=== PATIENT | male | born 1945 | race Caucasian/White ===

== ENCOUNTER 2022-02-08 11:58 | Emergency (ER) | payer OTHER, MEDICARE, SELFPAY ==
--- NOTE | ~2022-02-08 | XR_ITS ---
EXAMINATION: XR chest 2V DATE: 02/08/2022 12:41 INDICATION: Hypoxia and shortness of breath TECHNIQUE: AP and lateral views of the chest are obtained. COMPARISON: None available FINDINGS: There are opacities of the left lung base. Trace pleural effusions are present. There is no pneumothorax. The heart size is normal. There appears to be marked ectasia of the thoracic aorta. Th ere is moderate thoracic spondylosis. IMPRESSION: 1. Left basilar airspace opacities, consistent with atelectasis versus pneumonia. Reviewed, dictated and finalized at location A. IMPRESSION: 1. Left basilar airspace opacities, consistent with atelectasis versus pneumoni a.
--- NOTE | 2022-02-08 12:08 | ECG_ITS ---
Measurements Intervals [place] Rate: 64 P: 29 WY: 196 QRS: -41 QRSD: 86 T: 31 QT: 415 QTc: 431 Interpretive Statements SINUS RHYTHM LEFT AXIS DEVIATION [QRS AXIS < -30] LOW QRS VOLTAGE IN EXTREMITY LEADS BORDERLINE ECG NO PREVIOUS ECG AVAILABLE FOR COMPARISON Electronically Signed On 02-08-2022 14:51:48 CDT by Jose R Cifuentes M.D.
[2022-02-08 12:09] VITALS: BP 115/79; PULSE 65; RESP 20; TEMP 37.4; O2SAT 94
[2022-02-08 12:25] LABS: Basophils Percent Auto 0.4 % (0.2-1.2); Eosinophils Percent Auto 0.2 % (0-4.4); Hematocrit 43.9 % (42.0-52.0); Hemoglobin 14.4 g/dL (14.0-18.0); Immature Granulocyte Absolute 0.01 K/mm3 (0.00-0.031); Immature Granulocyte Percent A 0.1 % (0-0.5); Lymphocytes Absolute Auto 1.06 K/mm3 (0.9-3.2); Lymphocytes Percent Auto 13.2 % (18.3-44.2); Mean Corpuscular HGB Conc 32.8 g/dl (32-36); Mean Corpuscular Hemoglobin 30.6 pg (26-34); Mean Corpuscular Volume 93.4 fl (80-100); Mean Platelet Volume 10.9 fl (7.4-10.4); Monocytes Absolute Auto 0.6 K/mm3 (0.1-0.6); Monocytes Percent Auto 7.4 % (2.6-8.5); Neutrophils Absolute Auto 6.3 K/mm3 (1.3-6.7); Neutrophils Percent Auto 78.7 % (45.5-73.1); Platelet Count Result 186 k/mm3 (150-375); Red Cell Distribution Width 14.9 % (11.5-14.5)
--- NOTE | 2022-02-08 12:38 | ED.SOB ---
HPI - SOB/Dyspnea General Chief Complaint: Weakness Stated Complaint: weakness Time Seen by Provider: 02/08/22 12:01 History of Present Illness HPI Narrative: 77-year-old male with history of Parkinson's ER, COPD, nonverbal at baseline, COPD presents here because his hotel custodian had witnessed an episode where he seemed to be gasping for air and having difficulty breathing, per family at bedside these episodes do happen, and have been happening more frequently as his Parkinson's has progressed, but they wanted to make sure there was nothing else going on. He is not on oxygen at baseline. Per family, he generally does not able to stand or get around by himself at baseline. Denies any new cough, and patient expresses that he is not having difficulty breathing, chest pain, abdominal pain, or any other complaints. Related Data Allergies Allergy/AdvReac Type Severity Reaction Status Date / Time No Known Allergies Allergy Verified 02/08/22 12:15 Review of Systems Review of Systems: CONST: No fever. HEENT: No sore throat C/V: No chest pain RESP: No cough; per hotel custodian difficulty breathing GI: No abdominal pain : No dysuria. M/S: No joint pain. SKIN: No rash. NEURO: Chronic weakness PSYCH: [No depression] [facility] Past Medical History Medical History (Updated 02/08/22 @ 13:02 by Nayely Urbina MD) COPD (chronic obstructive pulmonary disease) Parkinsons disease Social History Social History (Updated 02/08/22 @ 12:43 by Nayely Urbina MD) Smoking status: Former smoker Exam Narrative: EXAMINATION OF ORGAN SYSTEMS/BODY AREAS: Constitutional: Vital signs per nursing GENERAL:[No acute distress, non-toxic appearing.] HEAD: Normal with no signs of head trauma. EYES: EOMI, conjunctiva normal ENT: Hearing grossly intact LUNGS: Nonlabored breathing. Prolonged end expiratory phase. HEART: [Regular rate and rhythm] ABD: [Soft], [nontender to palpation] EXT: Able to move upper extremities; lower extremities not against gravity SKIN: [No rashes or lesions.] NEURO: [Alert.] PSYCH: Normal affect Course Vital Signs Vital signs: Vital Signs Temperature 99.3 F 02/08/22 12:09 Pulse Rate 65 02/08/22 12:09 Respiratory Rate 20 02/08/22 12:09 Blood Pressure 115/79 02/08/22 12:09 Pulse Oximetry 94 02/08/22 12:09 Oxygen Delivery Room Air 02/08/22 12:09 Temperature 99.3 F 02/08/22 12:09 Pulse Rate 63 02/08/22 12:53 Respiratory Rate 21 H 02/08/22 12:53 Blood Pressure 115/79 02/08/22 12:09 Pulse Oximetry 94 02/08/22 12:09 Oxygen Delivery Room Air 02/08/22 12:09 MDM - SOB/Dyspnea MDM Narrative Medical decision making narrative: 77-year-old male presents with episode of difficulty breathing, vital stable, exam shows well-appearing patient who is resting comfortably, with slightly prolonged expiratory phase, I suspect possibly COPD exacerbation versus infectious etiology such as pneumonia/COVID, versus less likely ACS/MN without chest pain, also considered worsening of his neurologic condition causing more weakness with his respiratory muscles. I will start him on breathing treatments here. Chest x-ray here consistent with possible pneumonia versus atelectasis, given his risk factors I do feel he would probably benefit from conservative treatment with antibiotics at this time. He is still well-appearing with normal saturations on re-evaluation, with normal oxygenation; I have discussed findings with family who are comfortable with him going home at this time. Return precautions are discussed and he will follow up with his own doctor in 1-2 days. Lab Data Result diagrams: 02/08/22 12:14 02/08/22 12:14 Labs: Lab Results 02/08/22 02/08/22 02/08/22 Range/Units 12:14 12:14 12:19 WBC 8.0 (4.5-10.0) K/mm3 RBC 4.70 (4.6-6.20) M/mm3 Hgb 14.4 (14.0-18.0) g/dL Hct 43.9 (42.0-52.0) % MCV 93.4 (80-100) fl MCH 30.6 (26-34) pg MCHC 32.8
[2022-02-08 12:40] LABS: Alanine Aminotransferase 6 U/L (6-50); Alkaline Phosphatase 70 U/L (38-126); Anion Gap 6 mmol/L (8-16); Aspartate Amino Transferase 23 U/L (17-59); Bilirubin,Total 0.5 mg/dL (0.2-1.3); Blood Urea Nitrogen 15 mg/dL (9-20); Calcium 8.4 mg/dL (8.4-10.2); Carbon Dioxide 24 mmol/L (22-30); Chloride 106 mmol/L (98-107); Estimated CRCL calculation 84 ml/min; Estimated Glomerular Filt Rate > 60; Glucose 110 mg/dL (65-110); Magnesium 1.7 mg/dL (1.6-2.3); Potassium 3.7 mmol/L (3.4-5.0); Sodium 136 mmol/L (137-145)
[2022-02-08] MEDS: methylPREDNISolone SOD SUCC 125 MG VIAL 40 MG IV PUSH (12:42)
[2022-02-08 12:50] LABS: NT Pro B Type Natriuretic Pept 131 pg/mL (5-100); Troponin I < 0.012 ng/mL (0.000-0.034)
[2022-02-08 12:52] LABS: Appearance Urine Clear (Clear); Bilirubin Urine 1+ (Negative); Blood Urine Negative (Negative); Color Urine Yellow (Yellow); Glucose Urine UA Negative (Negative); Ketones Urine Trace mg/dL (Negative); Leukocyte Esterase Ur Negative LEU/UL (Negative); Nitrate Urine Negative (Negative); Protein Urine Negative (Negative); Specific Grav Ur 1.025 (1.001-1.035)
[2022-02-08 12:53] VITALS: PULSE 63; RESP 21
[2022-02-08] MEDS: IPRATROPIUM BR 0.02% INH SOLN 0.5 MG/2.5 ML VIAL 1 MG INHALATION (12:54)
[2022-02-08] MEDS: ALBUTEROL SULFATE NEB 2.5 MG/3 ML INH 15 MG INHALATION (12:54)
[2022-02-08 13:00] LABS: Mucus Urine Rare /lpf; RBC Urine 0-2 /hpf (0-2); Squamous Epithelial Cell Urine Rare /hpf (Few); WBC Urine 0-3 /hpf
[2022-02-08 13:01] LABS: Add Urine Microscopic? YES
[2022-02-08 13:07] LABS: Influenza A QL RT-PCR Negative (Negative); Influenza B QL RT-PCR Negative (Negative); SARS-CoV-2 RNA PCR Negative
[2022-02-08] MEDS: cefTRIAXone 2 GM in SODIUM CHLORIDE 0.9% IV 100 ML 200 ML IVPB (14:00)
== END 2022-02-08 14:38 | disposition home or self-care (01) ==
PROVIDERS: Emergency Provider Emergency Medicine
DX: J18.9 Pneumonia, unspecified organism (principal); J44.1 Chronic obstructive pulmonary disease with (acute) exacerbation; Z20.822 Contact with and (suspected) exposure to COVID-19; G20 Parkinson's disease; Z87.891 Personal history of nicotine dependence; R94.31 Abnormal electrocardiogram [ECG] [EKG]
CPT/HCPCS: 36415; 71046; 80053; 81001; 83735; 83880; 84484; 85025; 87502; 93005; 94640; 96365; 96367; 96375; 99284; C9803; J0456; J0696; J2930; U0003; U0005

== ENCOUNTER 2022-06-22 14:00 | Inpatient (IN) | payer OTHER, MEDICARE, SELFPAY ==
[2022-06-22] VITALS (28 sets, daily range): BP systolic 100–126; BP diastolic 60–73; PULSE 56–98; RESP 13–24; TEMP 36.5–36.9; O2SAT 91–100; BMI 24.0
--- NOTE | ~2022-06-22 | XR_ITS ---
XR chest 1V portable DATE: 06/22/2022 15:31 INDICATION: Cough TECHNIQUE: Portable AP chest views on 06/22/2022 1525 and 1526 hours COMPARISON: 02/08/2022 AP and lateral chest FINDINGS: Heart size appears within normal range. Is aortic unfolding. Mild infiltrate or atelectasis is suggested at the lung bases, greater on the left. The lungs otherwi se appear clear. No pleural effusion or pulmonary vascular congestion or pneumothorax. Osteopenia. IMPRESSION: Mild infiltrate or atelectasis in the lower lung zones, primarily on the left Reviewed, dictated and finalized at location A. IMPRESSION: Mild infiltrate or atelectasis in the lower lung zones, primarily o n the left
--- NOTE | ~2022-06-22 | XR_ITS ---
EXAMINATION: XR barium swallow modified DATE: 06/23/2022 11:13 INDICATION: Dysphagia. TECHNIQUE: The patient was given barium-containing material of multiple consistencies to swallow by francisco otto speech pathologist while I performed fluoroscopy. Dose-area product was 3.221 Gy-cm2. 4.6 minutes fluoroscopy time. FINDINGS: Oral Stage: Reduced labial seal and left tension Reduced lingual movement Pharyngeal Phase: Reduced laryngeal elevation and adduction Reduced tongue base retraction Reduced pharyngeal squeeze Vallecular and piriform sinus and pharyngeal wall residue Laryngeal penetration and mild aspiration Cervical/Esophageal Stage: Within functional limits IMPRESSION: Modified esophagram findings as above. Please refer to the speech therapy [facility] for [facility]. Reviewed, dictated and finalized at Location A. Reviewed, dictated and finalized at location A. IMPRESSION: Modified esophagram findings as above. Please refer to the speech t herapy report for specific recommendations.
--- NOTE | 2022-06-22 14:18 | ECG_ITS ---
Measurements Intervals [place] Rate: 58 P: 34 NV: 190 QRS: -48 QRSD: 90 T: 28 QT: 434 QTc: 426 Interpretive Statements SINUS BRADYCARDIA LEFT AXIS DEVIATION BORDERLINE T WAVE ABNORMALITY- ANTERIOR LEADS BASELINE ARTIFACT- I, II, III, AVR, AVL, AVF, V2-V3 BORDERLINE ECG COMPARED TO ECG 02/08/2022 12:13:44 SINUS BRADYCARDIA NOW PRESENT Electronically Signed On 06-22-2022 15:13:40 CDT by Swapnil Peralta D.O.
--- NOTE | 2022-06-22 14:20 | ED.SOB ---
HPI - SOB/Dyspnea General Chief Complaint: Shortness of Breath/Dyspnea Stated Complaint: respiratory Time Seen by Provider: 06/22/22 14:05 History of Present Illness HPI Narrative: Pt presents with SOB and cough for a couple of days. HH RN noted sats to be low today and lungs sounded bad. Gave treatments and unable to get bo up so advised to go to ER. Pt denies fever. Pt has cough but not strong due to Parkinson's/ Pt denies edema or CP. Related Data Home Medications Medication Instructions Recorded Confirmed amlodipine 2.5 mg tablet 2.5 mg PO DAILY 06/22/22 06/22/22 ammonium lactate 12 % lotion 1 applic topical DAILY PRN Dry Skin 06/22/22 06/22/22 aspirin 81 mg chewable tablet 81 mg PO DAILY 06/22/22 06/22/22 carbamide peroxide 6.5 % ear drops 5 drp EACH EAR DAILY 06/22/22 06/22/22 carbidopa 25 mg-levodopa 100 mg 2 tablet PO TID 06/22/22 06/22/22 tablet clotrimazole 1 % topical cream 1 applic topical BID 06/22/22 06/22/22 folic acid 1 mg tablet 1 mg PO DAILY 06/22/22 06/22/22 ipratropium 20 mcg-albuterol 100 1 puff inhalation QID PRN SOB 06/22/22 06/22/22 mcg/actuation mist for inhalation ketotifen fumarate 0.025 % (0.035 1 drp BID PRN Allergy Symptoms 06/22/22 06/22/22 %) eye drops (Allergy Eye (ketotifen)) melatonin 3 mg capsule 9 mg PO HS PRN Insomnia 06/22/22 06/22/22 mupirocin 2 % topical ointment 1 applic topical BID 06/22/22 06/22/22 omeprazole 20 mg capsule,delayed 20 mg PO DAILY 06/22/22 06/22/22 release rosuvastatin 10 mg tablet 5 mg PO DAILY 06/22/22 06/22/22 sertraline 100 mg tablet 200 mg PO DAILY 06/22/22 06/22/22 valacyclovir 1 gram tablet 1,000 mg TID 06/22/22 06/22/22 Allergies Allergy/AdvReac Type Severity Reaction Status Date / Time No Known Allergies Allergy Verified 06/22/22 21:38 Review of Systems Review of Systems: All systems reviewed & are unremarkable except as noted in HPI and below PMFSH Past Medical History Medical History (Updated 06/22/22 @ 23:25 by Britney Larson NP) Depression HTN (hypertension), malignant Hyperlipidemia Parkinsons disease Surgical History Surgical History H/O laminectomy 2011 Family History Family History Father Carcinoma of colon Sibling Cancer Social History Social History (Updated 06/22/22 @ 23:26 by Britney Larson NP) Social History: The patient lives with his who is the power patent attorney. Thus patient still SMOKEs approximately 1/2 pack a cigarettes per day. 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 He has 3 children. He denies any alcohol marijuana or illicit drugs. Code status full code Smoking packs per day: 0.5 Smoking cigarettes per day: 10.0 Years smoked: 60 Smoking pack-years: 30.00 Smoking status: Current every day smoker Tobacco type: cigarettes Alcohol intake: never Substance use: never Has the Lack of Transportation Kept You From Medical Appointments or From Getting Medications?: No Within the Past 12 Months, Were You Worried Whether Your Food Would Run Out Before You Got Money to Buy More?: Never True What is Your Housing Situation Today?: I Have Housing Are You Worried That in the Next 2 Months, You May Not Have Your Own Housing to Live In?: No Do You Have Trouble Paying Your Heating Or Electricity Bill?: No Do You Have Trouble Paying For Medicines?: No Are You Currently Unemployed and Looking for Work?: No Highest Level of Education Completed: High School Diploma/GED Do You Have Trouble With Childcare or the Care of a Family Member?: No Spiritual care concerns: No Exam Const: General: healthy appearing and no acute distress Nutritional Appearance: well nourished Orientation/consciousness: patient oriented x3 Limitations: no limitations HENMT: Mouth: Yes Normal oral and palatal mucosa present Eyes: EOM: EOMs intact bilaterally Neck: N
[2022-06-22] MEDS: ALBUTEROL SULFATE NEB 2.5 MG/3 ML INH 5 MG INHALATION (14:37)
[2022-06-22] MEDS: IPRATROPIUM BR 0.02% INH SOLN 0.5 MG/2.5 ML VIAL INHALATION (14:38)
[2022-06-22 14:45] LABS: Basophils Absolute Auto 0.1 K/mm3 (0.0-0.1); Basophils Percent Auto 0.5 % (0.2-1.2); Eosinophils Absolute Auto 0.1 K/mm3 (0-0.3); Eosinophils Percent Auto 1.3 % (0-4.4); Hemoglobin 16.4 g/dL (14.0-18.0); Immature Granulocyte Absolute 0.06 K/mm3 (0.00-0.031); Immature Granulocyte Percent A 0.6 % (0-0.5); Lymphocytes Percent Auto 16.3 % (18.3-44.2); Mean Corpuscular HGB Conc 32.2 g/dl (32-36); Mean Corpuscular Hemoglobin 30.5 pg (26-34); Mean Corpuscular Volume 94.8 fl (80-100); Mean Platelet Volume 10.2 fl (7.4-10.4); Monocytes Absolute Auto 0.4 K/mm3 (0.1-0.6); Monocytes Percent Auto 4.3 % (2.6-8.5); Neutrophils Absolute Auto 7.6 K/mm3 (1.3-6.7); Platelet Count Result 247 k/mm3 (150-375); Red Blood Count 5.38 M/mm3 (4.6-6.20); Red Cell Distribution Width 14.9 % (11.5-14.5); White Blood Count 9.8 K/mm3 (4.5-10.0)
[2022-06-22 14:56] LABS: Alanine Aminotransferase 12 U/L (6-50); Albumin Level 4.3 g/dL (3.5-5.1); Alkaline Phosphatase 73 U/L (38-126); Anion Gap 8 mmol/L (8-16); Aspartate Amino Transferase 39 U/L (17-59); Bilirubin,Total 0.6 mg/dL (0.2-1.3); Blood Urea Nitrogen 17 mg/dL (9-20); Calcium 8.9 mg/dL (8.4-10.2); Carbon Dioxide 28 mmol/L (22-30); Chloride 101 mmol/L (98-107); Estimated CRCL calculation 80 ml/min; Estimated Glomerular Filt Rate > 60; Glucose 155 mg/dL (65-110); Potassium 3.9 mmol/L (3.4-5.0); Sodium 137 mmol/L (137-145)
[2022-06-22 14:57] LABS: INR 1.1; Prothrombin Time 14.1 Seconds (11.1-14.7)
[2022-06-22 14:58] LABS: Partial Thromboplastin Time 38.6 SECONDS (22.3-36.8)
[2022-06-22 15:10] LABS: NT Pro B Type Natriuretic Pept 50 pg/mL (5-100); Troponin I < 0.012 ng/mL (0.000-0.034)
--- NOTE | 2022-06-22 19:25 | PC.NURSE ---
Pt daughter requesting pt to have sims catheter placed due to pt not being able to communicate his needs while they are not present in the hospital. Will speak with Dr. Lopez. Dr. Lopez verbal okay for patient to have sims catheter placed.
--- NOTE | 2022-06-22 20:02 | PM.IMHP ---
H&P: HPI History of Present Illness Date/Time: 06/22/22 20:02 Chief Complaint: Shortness of breath Narrative: This is a 77-year-old male patient who has a history of Parkinson's. The patient came to the emergency room with complaints of shortness of breath and cough for couple days. The whole family had an upper respiratory infection and according to the daughter the patient had received azithromycin and prednisone. The patient did not appear to be getting any better. The home health RN came into his home and found that the patient's O2 saturations were fluctuating today between normal and low. Patient has been coughing and has been very congested. Chest x-ray was read as mild infiltrate or atelectasis in the lower lung zones primarily on the left. The daughters stated that the patient does get choked at times and has decreased oral intake since he has advanced Parkinson's. The patient initially was started on azithromycin and Rocephin. I changed him to cefepime and vancomycin since he had already been treated and completed a course of azithromycin. The patient is being admitted to observation status on the date of service of 06/22/2022. Review of Systems Review of Systems: The patient is nonverbal and the daughters were at the bedside answering questions for him All systems reviewed & are unremarkable except as noted in HPI and below Constitutional: Constitutional: Reports as per HPI and Reports no additional constitutional complaints Eyes: Eyes: Reports as per HPI and Reports no additional eye complaints ENT: Reports system reviewed and no additional complaints, except as documented and Reports Normal hearing present Cardiovascular: Cardiovascular: Reports no additional cardiovascular complaints Respiratory: Respiratory: Reports no additional respiratory complaints and Reports no additional respiratory complaints Gastrointestinal: Gastrointestinal: Reports as per HPI and Reports no additional gastrointestinal complaints Musculoskeletal: Musculoskeletal: Reports no additional musculoskeletal complaints Integumentary/Breasts: Skin/Breast: Reports system reviewed and no additional complaints, except as docu and Reports as per HPI Neurologic: Reports system reviewed and no additional complaints, except as documented, Reports as per HPI and Reports Normal hearing present Psychiatric: Psychiatric: Reports no additional psychiatric complaints and Reports as per HPI Endocrine: Endocrine: Reports no additional endocrine complaints Hematologic/Lymphatic: Hematologic/Lymphatic: Reports no additional hematologic/lymphatic complaints Allergic/Immunologic: Allergic/Immunologic: Reports no additional allergic/immunologic complaints [facility] Past Medical History Medical History (Updated 06/22/22 @ 23:25 by Britney Larson NP) Depression HTN (hypertension), malignant Hyperlipidemia Parkinsons disease Surgical History Surgical History H/O laminectomy 2011 Family History Family History Father Carcinoma of colon Sibling Cancer Social History Social History (Updated 06/22/22 @ 23:26 by Britney Larson NP) Social History: The patient lives with his who is the power transactional attorney. Thus patient still SMOKEs approximately 1/2 pack a cigarettes per day. The patient is retired from being a [employer]. He has 3 children. He denies any alcohol marijuana or illicit drugs. Code status full code Smoking packs per day: 0.5 Smoking cigarettes per day: 10.0 Years smoked: 60 Smoking pack-years: 30.00 Smoking status: Current every day smoker Tobacco type: cigarettes Alcohol intake: never Substance use: never Has the Lack of Transportation Kept You From Medical Appointments or From Getting Medications?: No Within the Past 12 Months, Were You Worried Whether Your Food Would Run Out Before You Got Money
--- NOTE | 2022-06-22 21:05 | ADMGEN ---
This patient, Tung Vann, was admitted to 3 [facility] Surg Room 301-01. Patient/family oriented to hospital policies and general routines including ID bracelet, bed and alarms, visiting hours, pain management, procedures, bathroom and other care routines, personal items, smoking policy, room service/diet, and visiting hours. Information on how to activate the Rapid Response Team has been discussed. Patient/Family are encouraged to report perceived risks to care and to ask questions if they do not understand what they are told or what they should do.
--- NOTE | 2022-06-22 23:09 | PC.NURSE ---
Pt arrived to the unit with daughters at bedside. Pt has blanchable redness that looks like a healing maceration per Shy transmitter engineer in charge. Pt is a Q2 turn. Pt getting abx here on the floor. Pt is unable to participate and contribute in plan of care. Pt is resting and does not show any signs of pain or discomfort. Will continue to monitor pt.
[2022-06-23] VITALS (11 sets, daily range): BP systolic 109–113; BP diastolic 64–74; PULSE 50–67; RESP 16–20; TEMP 36.6; O2SAT 90–95
[2022-06-23] MEDS: ALBUTEROL SULFATE NEB 2.5 MG/3 ML INH INHALATION ×2 (03:57→14:05)
[2022-06-23] MEDS: IPRATROPIUM BR 0.02% INH SOLN 0.5 MG/2.5 ML VIAL INHALATION ×2 (03:57→14:05)
--- NOTE | 2022-06-23 04:45 | PC.NURSE ---
Pt's O2 was spot checked and pt was registering 88% on room air. Pt was placed on 2 liters O2 and saturation went up to 93%. Will continue to monitor pts vital signs.
[2022-06-23 06:56] LABS: Basophils Absolute Auto 0.1 K/mm3 (0.0-0.1); Basophils Percent Auto 0.5 % (0.2-1.2); Eosinophils Absolute Auto 0.2 K/mm3 (0-0.3); Hematocrit 42.9 % (42.0-52.0); Hemoglobin 14.1 g/dL (14.0-18.0); Immature Granulocyte Absolute 0.07 K/mm3 (0.00-0.031); Immature Granulocyte Percent A 0.6 % (0-0.5); Lymphocytes Percent Auto 23.6 % (18.3-44.2); Mean Corpuscular HGB Conc 32.9 g/dl (32-36); Mean Corpuscular Hemoglobin 30.4 pg (26-34); Mean Corpuscular Volume 92.5 fl (80-100); Monocytes Absolute Auto 0.7 K/mm3 (0.1-0.6); Monocytes Percent Auto 6.4 % (2.6-8.5); Neutrophils Absolute Auto 7.4 K/mm3 (1.3-6.7); Neutrophils Percent Auto 66.9 % (45.5-73.1); Platelet Count Result 236 k/mm3 (150-375); Red Blood Count 4.64 M/mm3 (4.6-6.20); Red Cell Distribution Width 14.6 % (11.5-14.5)
[2022-06-23 07:01] LABS: Lactic Acid Reflex 1.3 mmol/L (0.7-2.0)
[2022-06-23 07:05] LABS: Alanine Aminotransferase 21 U/L (6-50); Albumin Level 3.6 g/dL (3.5-5.1); Alkaline Phosphatase 54 U/L (38-126); Anion Gap 11 mmol/L (8-16); Aspartate Amino Transferase 30 U/L (17-59); Bilirubin,Total 0.4 mg/dL (0.2-1.3); Blood Urea Nitrogen 16 mg/dL (9-20); Calcium 8.4 mg/dL (8.4-10.2); Carbon Dioxide 25 mmol/L (22-30); Chloride 101 mmol/L (98-107); Estimated CRCL calculation 90 ml/min; Estimated Glomerular Filt Rate > 60; Glucose 82 mg/dL (65-110); Magnesium 1.9 mg/dL (1.6-2.3); Potassium 3.5 mmol/L (3.4-5.0); Sodium 137 mmol/L (137-145)
[2022-06-23] MEDS: ASPIRIN 81 MG CHEWABLE TABLET PO (08:55)
[2022-06-23] MEDS: SERTRALINE HCL 50 MG TABLET 200 MG PO (08:55)
[2022-06-23] MEDS: CARBIDOPA/LEVODOPA 25/100 MG TABLET 2 TABLET PO ×3 (08:55→17:55)
[2022-06-23] MEDS: PANTOPRAZOLE 40 MG TABLET PO (08:56)
--- NOTE | 2022-06-23 10:43 | PCRCNOTE ---
Window of time for administration has passed. See next scheduled administration.
--- NOTE | 2022-06-23 11:24 | PCSTNOTE ---
Please refer to the Bedside Swallow Evaluation in the EMR. Please note, silent aspiration cannot be ruled out at bedside.
--- NOTE | 2022-06-23 11:45 | PM.IMPN ---
Progress Note: A&P Assessment and Plan (1) Pneumonia: Code(s): J18.9 - Pneumonia, unspecified organism Status: Acute Assessment and Plan: Outpatient azithromycin, and steroids Antibiotics changed to cefepime and vanc Chest xray mild infiltrate or atelectasis in the lower lung zone, primarily on the left Neb treatment Sputum culture pending Blood cultures pending WBC 13.3 ST for swallow study Wean supplemental oxygen to maintain saturation >90% (2) Parkinsons disease: Code(s): G20 - Parkinson's disease Status: Chronic Assessment and Plan: Continue carbidopa levodopa Neurology consulted Modified barium swallow was within normal limits Continue current therapy (3) Depression: Code(s): F32.A - Depression, unspecified Status: Chronic Assessment and Plan: continue with sertraline (4) Hyperlipidemia: Code(s): E78.5 - Hyperlipidemia, unspecified Status: Chronic Assessment and Plan: Continue with Crestor (5) HTN (hypertension), malignant: Code(s): I10 - Essential (primary) hypertension Status: Chronic Assessment and Plan: BP is 111/58 Continue with amlodipine Trend BP Adjust BP as indicate Time Spent With Patient Time with patient: Greater than 35 minutes Subjective Date/time seen: 06/23/22 1145 Interval history: 06/23/22 114 Patient does have a advance form of Alzheimer's. However he did respond to yes or no answer questions. He states that he feels okay. He denied any chest pain, shortness a breath, nausea, vomiting, diarrhea, constipation, weakness or fatigue, sweats, fevers or chills. However his daughter did report that he has had a cough for 3 weeks and the last week it has gotten worse. She also stated that he has been sweating a little bit. 06/22/22? 20:02 This is a 77-year-old male patient who has a history of Parkinson's.? The patient came to the emergency room with complaints of shortness of breath and cough for couple days.? The whole family had an upper respiratory infection and according to the daughter the patient had received azithromycin and prednisone.? The patient did not appear to be getting any better.? The home health RN came into his home and found that the patient's O2 saturations were fluctuating today between normal and low.? Patient has been coughing and has been very congested.? Chest x-ray was read as mild infiltrate or atelectasis in the lower lung zones primarily on the left.? The daughters stated that the patient does get choked at times and has decreased oral intake since he has advanced? Parkinson's.? The patient initially was started on azithromycin and Rocephin.? I changed him to cefepime and vancomycin since he had already been treated and completed a course of azithromycin.? The patient is being admitted to observation status on the date of service of 06/22/2022. Review of Systems Review of Systems: All systems reviewed & are unremarkable except as noted in HPI and below Exam Const: General: cooperative, comfortable, no acute distress, well developed, alert, awake, Physically active, average body habitus and well nourished Nutritional Appearance: average body habitus and well nourished Orientation/consciousness: oriented to person, oriented to place, oriented to time and patient oriented x3 Limitations: no limitations HENMT: Head: normal to inspection, No palpable skull fracture present and normocephalic Ears: external ears normal and hearing grossly impaired Face/Nose/Sinus: Normal external nose present and Normal nares present Eyes: General: appearance normal, both eyes and all related structures Alignment and Position: alignment normal Periorbital: periorbital findings normal Eyelids: eyelids normal Pupils: Equal, round and reactive pupils present EOM: EOMs intact bilaterally Neck: Neck: johnny
--- NOTE | 2022-06-23 12:52 | WPDNEURCNPN ---
Assessment and Plan Assessment and plan (1) Parkinsons disease: Code(s): G20 - Parkinson's disease Status: Acute Assessment and Plan: Parkinson's disease with possibility of supranuclear palsy Plan continue the medication as such readjust according Consult date: 06/23/22 Reason for consult: Parkinson's disease HPI: Tung Vann is a 77 year old male admitted to the hospital through the emergency room with complaints of shortness of breath along with cough of several days duration with inability to get up without associated chest discomfort, known parkinsonian and has been taking carbidopa levodopa 200 mg 3 times a day each 25/100 tablets in addition to sertraline 200 mg daily rosuvastatin 50 mg daily, is not allergic to any medication, and has ongoing history of hypertension with depression as well. Patient's has the power of collections attorney, he smokes half a pack of cigarettes per day and does not use alcohol. Has history of smoking pack years 30, initial evaluation in the emergency room revealed normal vital signs normal CBC normal basic metabolic panel with glucose of 155, since admission has had the modified barium swallow which was within functional limits ,, Review of Systems Review of Systems: All systems reviewed & are unremarkable except as noted in HPI and below PMFSH Past Medical History Medical History (Updated 06/22/22 @ 23:25 by Britney Larson NP) Depression HTN (hypertension), malignant Hyperlipidemia Parkinsons disease Surgical History Surgical History H/O laminectomy 2011 Family History Family History Father Carcinoma of colon Sibling Cancer Social History Social History (Updated 06/22/22 @ 23:26 by Britney Larson NP) Social History: The patient lives with his who is the power collections attorney. Thus patient still SMOKEs approximately 1/2 pack a cigarettes per day. 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 He has 3 children. He denies any alcohol marijuana or illicit drugs. Code status full code Smoking packs per day: 0.5 Smoking cigarettes per day: 10.0 Years smoked: 60 Smoking pack-years: 30.00 Smoking status: Current every day smoker Tobacco type: cigarettes Alcohol intake: never Substance use: never Has the Lack of Transportation Kept You From Medical Appointments or From Getting Medications?: No Within the Past 12 Months, Were You Worried Whether Your Food Would Run Out Before You Got Money to Buy More?: Never True What is Your Housing Situation Today?: I Have Housing Are You Worried That in the Next 2 Months, You May Not Have Your Own Housing to Live In?: No Do You Have Trouble Paying Your Heating Or Electricity Bill?: No Do You Have Trouble Paying For Medicines?: No Are You Currently Unemployed and Looking for Work?: No Highest Level of Education Completed: High School Diploma/GED Do You Have Trouble With Childcare or the Care of a Family Member?: No Spiritual care concerns: No Meds Home Medications and Allergies Home Medications Medication Instructions Recorded Confirmed Type amlodipine 2.5 mg tablet 2.5 mg PO DAILY 06/22/22 06/22/22 History ammonium lactate 12 % lotion 1 applic topical DAILY PRN Dry Skin 06/22/22 06/22/22 History aspirin 81 mg chewable tablet 81 mg PO DAILY 06/22/22 06/22/22 History carbamide peroxide 6.5 % ear drops 5 drp EACH EAR DAILY 06/22/22 06/22/22 History carbidopa 25 mg-levodopa 100 mg 2 tablet PO TID 06/22/22 06/22/22 History tablet clotrimazole 1 % topical cream 1 applic topical BID 06/22/22 06/22/22 History folic acid 1 mg tablet 1 mg PO DAILY 06/22/22 06/22/22 History ipratropium 20 mcg-albuterol 100 1 puff inhalation QID PRN SOB 06/22/22 06/22/22 History mcg/actuation mist for inhalation ketotifen fumarate 0.025 % (0.035 1 drp BID PRN Allergy Symptoms
[2022-06-23] MEDS: MUPIROCIN 2% OINT 22 GM TUBE 1 APPLIC TOPICAL (20:39)
[2022-06-23] MEDS: MICONAZOLE NITRATE 2% CREAM 30 GM TUBE 1 APPLIC TOPICAL (20:41)
[2022-06-24] VITALS (13 sets, daily range): BP systolic 103–116; BP diastolic 58–68; PULSE 58–90; RESP 16–20; TEMP 36.5–37; O2SAT 91–94
[2022-06-24] MEDS: ALBUTEROL SULFATE NEB 2.5 MG/3 ML INH INHALATION ×4 (05:45→21:19)
[2022-06-24] MEDS: IPRATROPIUM BR 0.02% INH SOLN 0.5 MG/2.5 ML VIAL INHALATION ×4 (05:45→21:18)
[2022-06-24 07:01] LABS: Basophils Absolute Auto 0.1 K/mm3 (0.0-0.1); Basophils Percent Auto 0.4 % (0.2-1.2); Eosinophils Absolute Auto 0.3 K/mm3 (0-0.3); Eosinophils Percent Auto 2.1 % (0-4.4); Hematocrit 43.3 % (42.0-52.0); Hemoglobin 14.4 g/dL (14.0-18.0); Immature Granulocyte Absolute 0.06 K/mm3 (0.00-0.031); Immature Granulocyte Percent A 0.4 % (0-0.5); Lymphocytes Absolute Auto 2.41 K/mm3 (0.9-3.2); Lymphocytes Percent Auto 18.1 % (18.3-44.2); Mean Corpuscular HGB Conc 33.3 g/dl (32-36); Mean Corpuscular Hemoglobin 31.2 pg (26-34); Mean Corpuscular Volume 93.9 fl (80-100); Mean Platelet Volume 10.9 fl (7.4-10.4); Monocytes Absolute Auto 0.8 K/mm3 (0.1-0.6); Monocytes Percent Auto 5.8 % (2.6-8.5); Neutrophils Absolute Auto 9.8 K/mm3 (1.3-6.7); Neutrophils Percent Auto 73.2 % (45.5-73.1); Platelet Count Result 231 k/mm3 (150-375); Red Blood Count 4.61 M/mm3 (4.6-6.20); Red Cell Distribution Width 14.6 % (11.5-14.5); White Blood Count 13.3 K/mm3 (4.5-10.0)
[2022-06-24 07:07] LABS: Alanine Aminotransferase 23 U/L (6-50); Albumin Level 3.8 g/dL (3.5-5.1); Alkaline Phosphatase 62 U/L (38-126); Anion Gap 9 mmol/L (8-16); Aspartate Amino Transferase 30 U/L (17-59); Bilirubin,Total 0.4 mg/dL (0.2-1.3); Blood Urea Nitrogen 12 mg/dL (9-20); Calcium 8.6 mg/dL (8.4-10.2); Carbon Dioxide 23 mmol/L (22-30); Chloride 104 mmol/L (98-107); Estimated CRCL calculation 90 ml/min; Estimated Glomerular Filt Rate > 60; Glucose 82 mg/dL (65-110); Magnesium 1.8 mg/dL (1.6-2.3); Potassium 3.7 mmol/L (3.4-5.0); Sodium 136 mmol/L (137-145)
--- NOTE | 2022-06-24 09:15 | PM.IMPN ---
Progress Note: A&P Assessment and Plan (1) Pneumonia: Code(s): J18.9 - Pneumonia, unspecified organism Status: Acute Assessment and Plan: Outpatient azithromycin, and steroids Antibiotics changed to cefepime and vanc Chest xray mild infiltrate or atelectasis in the lower lung zone, primarily on the left Neb treatment Sputum culture so far shows yeast Blood cultures NGTD WBC 13.3 ST for swallow study, did not show any abnormalities Wean supplemental oxygen to maintain saturation >90% (2) Parkinsons disease: Code(s): G20 - Parkinson's disease Status: Chronic Assessment and Plan: Continue carbidopa levodopa Neurology consulted Modified barium swallow was within normal limits Continue current therapy (3) Depression: Code(s): F32.A - Depression, unspecified Status: Chronic Assessment and Plan: continue with sertraline (4) Hyperlipidemia: Code(s): E78.5 - Hyperlipidemia, unspecified Status: Chronic Assessment and Plan: Continue with Crestor (5) HTN (hypertension), malignant: Code(s): I10 - Essential (primary) hypertension Status: Chronic Assessment and Plan: BP is 111/58 Continue with amlodipine Trend BP Adjust BP as indicate (6) Anxiety: Code(s): F41.9 - Anxiety disorder, unspecified Status: Acute Assessment and Plan: Start Xanax for comfort and increased agitation at night Time Spent With Patient Time with patient: Greater than 35 minutes Subjective Date/time seen: 06/24/22 09:15 Interval history: 06/24/22 0915 Patient was lying in bed. Patient's daughter was giving him food. Patient denied any chest pain, shortness a breath, nausea, vomiting, diarrhea, constipation, weakness or fatigue. However patient did appear to be pallor with redness on the cheeks and forehead. White blood cell count is trending up at this time and patient still has audible rhonchi. 06/23/22 1145 Patient does have a advance form of Alzheimer's. However he did respond to yes or no answer questions. He states that he feels okay. He denied any chest pain, shortness a breath, nausea, vomiting, diarrhea, constipation, weakness or fatigue, sweats, fevers or chills. However his daughter did report that he has had a cough for 3 weeks and the last week it has gotten worse. She also stated that he has been sweating a little bit. 06/22/22? 20:02 This is a 77-year-old male patient who has a history of Parkinson's.? The patient came to the emergency room with complaints of shortness of breath and cough for couple days.? The whole family had an upper respiratory infection and according to the daughter the patient had received azithromycin and prednisone.? The patient did not appear to be getting any better.? The home health RN came into his home and found that the patient's O2 saturations were fluctuating today between normal and low.? Patient has been coughing and has been very congested.? Chest x-ray was read as mild infiltrate or atelectasis in the lower lung zones primarily on the left.? The daughters stated that the patient does get choked at times and has decreased oral intake since he has advanced? Parkinson's.? The patient initially was started on azithromycin and Rocephin.? I changed him to cefepime and vancomycin since he had already been treated and completed a course of azithromycin.? The patient is being admitted to observation status on the date of service of 06/22/2022. Review of Systems Review of Systems: All systems reviewed & are unremarkable except as noted in HPI and below Exam Const: General: cooperative, comfortable, no acute distress, well developed, alert, awake, Physically active, average body habitus and well nourished Nutritional Appearance: average body habitus and well nourished Orientation/consciousness: oriente
[2022-06-24] MEDS: FOLIC ACID 1 MG TABLET PO (09:20)
[2022-06-24] MEDS: MUPIROCIN 2% OINT 22 GM TUBE 1 APPLIC TOPICAL ×2 (09:40→18:04)
[2022-06-24] MEDS: LACTIC ACID 12% LOTION 225 BTL 1 APPLIC TOPICAL (09:40)
[2022-06-24] MEDS: MICONAZOLE NITRATE 2% CREAM 30 GM TUBE 1 APPLIC TOPICAL ×2 (09:40→18:04)
[2022-06-24] MEDS: PANTOPRAZOLE 40 MG TABLET PO (09:41)
[2022-06-24] MEDS: CARBIDOPA/LEVODOPA 25/100 MG TABLET 2 TABLET PO ×3 (09:41→18:04)
[2022-06-24] MEDS: amLODIPine BESYLATE 2.5 MG TABLET PO (09:41)
[2022-06-24] MEDS: ASPIRIN 81 MG CHEWABLE TABLET PO (09:41)
[2022-06-24] MEDS: ENOXAPARIN 40 MG/0.4 ML SYRINGE SUB-Q (09:41)
[2022-06-24] MEDS: ROSUVASTATIN 5 MG TABLET PO (09:41)
[2022-06-24] MEDS: SERTRALINE HCL 50 MG TABLET 200 MG PO (09:42)
[2022-06-24 10:08] LABS: Vancomycin Trough 16.2 ug/mL (10.0-20.0)
[2022-06-25] MEDS: ALBUTEROL SULFATE NEB 2.5 MG/3 ML INH INHALATION (01:49)
[2022-06-25] MEDS: IPRATROPIUM BR 0.02% INH SOLN 0.5 MG/2.5 ML VIAL INHALATION (01:49)
[2022-06-25 01:52] VITALS: PULSE 57; RESP 16
[2022-06-25 02:05] VITALS: PULSE 61; RESP 16
[2022-06-25 06:00] VITALS: BP 102/58; PULSE 54; RESP 15; TEMP 36.9; O2SAT 90
[2022-06-25 06:37] LABS: Basophils Absolute Auto 0.1 K/mm3 (0.0-0.1); Basophils Percent Auto 0.7 % (0.2-1.2); Eosinophils Absolute Auto 0.3 K/mm3 (0-0.3); Eosinophils Percent Auto 2.8 % (0-4.4); Hematocrit 40.6 % (42.0-52.0); Hemoglobin 13.5 g/dL (14.0-18.0); Immature Granulocyte Absolute 0.07 K/mm3 (0.00-0.031); Immature Granulocyte Percent A 0.6 % (0-0.5); Lymphocytes Absolute Auto 2.35 K/mm3 (0.9-3.2); Lymphocytes Percent Auto 19.7 % (18.3-44.2); Mean Corpuscular HGB Conc 33.3 g/dl (32-36); Mean Corpuscular Hemoglobin 30.6 pg (26-34); Mean Corpuscular Volume 92.1 fl (80-100); Monocytes Absolute Auto 0.8 K/mm3 (0.1-0.6); Monocytes Percent Auto 6.7 % (2.6-8.5); Neutrophils Absolute Auto 8.3 K/mm3 (1.3-6.7); Neutrophils Percent Auto 69.5 % (45.5-73.1); Platelet Count Result 211 k/mm3 (150-375); Red Blood Count 4.41 M/mm3 (4.6-6.20); Red Cell Distribution Width 14.6 % (11.5-14.5); White Blood Count 11.9 K/mm3 (4.5-10.0)
[2022-06-25 07:02] LABS: Alanine Aminotransferase 21 U/L (6-50); Albumin Level 3.5 g/dL (3.5-5.1); Alkaline Phosphatase 57 U/L (38-126); Anion Gap 11 mmol/L (8-16); Aspartate Amino Transferase 26 U/L (17-59); Bilirubin,Total 0.5 mg/dL (0.2-1.3); Blood Urea Nitrogen 9 mg/dL (9-20); Calcium 8.2 mg/dL (8.4-10.2); Carbon Dioxide 23 mmol/L (22-30); Chloride 103 mmol/L (98-107); Estimated CRCL calculation 90 ml/min; Estimated Glomerular Filt Rate > 60; Glucose 101 mg/dL (65-110); Potassium 3.4 mmol/L (3.4-5.0); Sodium 137 mmol/L (137-145)
[2022-06-25 08:23] VITALS: O2SAT 93
[2022-06-25] MEDS: ENOXAPARIN 40 MG/0.4 ML SYRINGE SUB-Q (08:43)
[2022-06-25] MEDS: PANTOPRAZOLE 40 MG TABLET PO (08:43)
[2022-06-25] MEDS: CARBIDOPA/LEVODOPA 25/100 MG TABLET 2 TABLET PO ×2 (08:43→15:12)
[2022-06-25] MEDS: FOLIC ACID 1 MG TABLET PO (08:43)
[2022-06-25] MEDS: ROSUVASTATIN 5 MG TABLET PO (08:43)
[2022-06-25] MEDS: ASPIRIN 81 MG CHEWABLE TABLET PO (08:43)
[2022-06-25] MEDS: SERTRALINE HCL 50 MG TABLET 200 MG PO (08:44)
[2022-06-25] MEDS: MUPIROCIN 2% OINT 22 GM TUBE 1 APPLIC TOPICAL (08:44)
[2022-06-25] MEDS: valACYclovir HCL 500 MG TABLET 1000 MG BY MOUTH ×2 (08:44→15:12)
[2022-06-25] MEDS: MICONAZOLE NITRATE 2% CREAM 30 GM TUBE 1 APPLIC TOPICAL (08:45)
[2022-06-25] MEDS: amLODIPine BESYLATE 2.5 MG TABLET PO (08:45)
[2022-06-25] MEDS: CARBAMIDE PEROXIDE 6.5% OT SOLN 15 ML BTL 5 DROP EACH EAR (08:45)
--- NOTE | 2022-06-25 09:15 | PM.DS ---
DS: Admitting Diagnosis Discharge Date 06/25/2215 Admitting Diagnosis Pneumonia DS: Discharge Diagnosis Discharge Diagnosis (1) Pneumonia: Code(s): J18.9 - Pneumonia, unspecified organism Status: Acute Assessment and Plan: Outpatient azithromycin, and steroids Antibiotics changed to cefepime and vanc Chest xray mild infiltrate or atelectasis in the lower lung zone, primarily on the left Neb treatment Sputum culture so far shows yeast Blood cultures NGTD WBC 13.3 ST for swallow study, did not show any abnormalities Wean supplemental oxygen to maintain saturation >90% (2) Parkinsons disease: Code(s): G20 - Parkinson's disease Status: Chronic Assessment and Plan: Continue carbidopa levodopa Neurology consulted Modified barium swallow was within normal limits Continue current therapy (3) Depression: Code(s): F32.A - Depression, unspecified Status: Chronic Assessment and Plan: continue with sertraline (4) Hyperlipidemia: Code(s): E78.5 - Hyperlipidemia, unspecified Status: Chronic Assessment and Plan: Continue with Crestor (5) HTN (hypertension), malignant: Code(s): I10 - Essential (primary) hypertension Status: Chronic Assessment and Plan: BP is 111/58 Continue with amlodipine Trend BP Adjust BP as indicate (6) Anxiety: Code(s): F41.9 - Anxiety disorder, unspecified Status: Acute Assessment and Plan: Start Xanax for comfort and increased agitation at night DS: Summary Hospital Course Hospital Course: Patient is a 77-year-old male with a past medical history of Parkinson's disease hypertension hyperlipidemia who presented to the ED with complaints shortness of breath and cough. Chest x-ray was performed and did show infiltrates in the lower lung zones. Sputum cultures collected however showed normal growth. Blood culture showed no growth today. WBCs was elevated upon arrival and is currently 11.9. Swallow study was performed and patient did well just needs support with feedings. Blood pressure has been controlled since admission. Patient was on supplemental oxygen however has been able to being weaned to room air. Patient does have advanced Parkinson's disease and is mainly immobile. Patient does transfer to a chair per chair left at home. Patient feels better today. Patient denies any chest pain, shortness a breath, nausea, vomiting, diarrhea, constipation, weakness or fatigue. Patient is eating well and has done well through admission. Labs are stable today and have been through the entire stay. Patient is stable for discharge. Status at Discharge Functional status at discharge: wheelchair bound Overall status at discharge: patient is progressing back to baseline Time Spent with Patient Time attestation: Total time spent providing and/or coordinating discharge services: 37 minutes Time spent: Greater than 30 minutes Specific discharge activities: Diagnostic testing, chart review, developing a treatment plan, education, care coordination documentation, physical exam, result review Exam Const: General: cooperative, comfortable, no acute distress, well developed, alert, awake, Physically active, average body habitus and well nourished Nutritional Appearance: average body habitus and well nourished Orientation/consciousness: oriented to person, oriented to place, oriented to time and patient oriented x3 Limitations: no limitations HENMT: Head: normal to inspection, No palpable skull fracture present and normocephalic Ears: external ears normal and hearing grossly impaired Face/Nose/Sinus: Normal external nose present and Normal nares present Eyes: General: appearance normal, both eyes and all related structures Alignment and Position: alignment normal Periorbital: periorbital findings normal Eyelid
== END 2022-06-25 15:44 | disposition home or self-care (01) | DRG 195 ==
LOC: ANHED 16:45 → ANH3MEDSUR 18:57
PROVIDERS: Nurse Practitioner; Admitting Provider Family Medicine; Emergency Provider Emergency Medicine; Visit Provider Nurse Practitioner
DX: J18.9 Pneumonia, unspecified organism (principal); G20 Parkinson's disease; G30.9 Alzheimer's disease, unspecified; E78.5 Hyperlipidemia, unspecified; F32.A Depression, unspecified; F17.210 Nicotine dependence, cigarettes, uncomplicated; F02.80 Dementia in other diseases classified elsewhere, unspecified severity, without behavioral disturbance, psychotic disturbance, mood disturbance, and anxiety; F41.9 Anxiety disorder, unspecified; I10 Essential (primary) hypertension; Z79.82 Long term (current) use of aspirin
CPT/HCPCS: 36415; 51702; 71045; 80053; 80202; 83605; 83735; 83880; 84443; 84484; 85025; 85610; 85730; 87040; 87070; 87205; 92526; 92611; 93005; 94640; 96365; 96366; 96367; 99285; A9270; G0378; J0456; J0692; J0696; J1650; J3370

== ENCOUNTER 2023-07-09 19:50 | Emergency (ER) | payer MEDICARE, OTHER, SELFPAY ==
--- NOTE | ~2023-07-09 | XR_ITS ---
EXAM: XR knee RT 3V DATE: 07/09/2023 21:19 HISTORY: fall, right knee anterior pain . COMPARISON: None available. FINDINGS: Decreased mineralization. No fracture or dislocation. No lytic or blastic lesion. Degenera tive changes at the right knee. Chondrocalcinosis. No erosion or periosteal change. Soft tissues with in normal limits. IMPRESSION: No acute osseous finding in the right knee. Reviewed, dictated and finalized at location K. TY SURVEYOR
--- NOTE | ~2023-07-09 | XR_ITS ---
EXAMINATION: XR chest 1V Exam Date/Time: 07/09/2023 21:12 SUPERVISOR DECORATING HISTORY: cough Comparison: 05/22/2022. RESULT: Lines, tubes, and devices: None. Lungs and pleura: Mild diffuse reticular opacities. Cardiomediastinal silhouette: Stable. Granulomatous calcifications. Other: No acute osseous or upper abdominal finding. IMPRESSION: Pulmonary opacities may represent mild interstitial edema in the appropriate clinical context. Reviewed, dictated and finalized at location K. RVISOR DECORATING IMPRESSION: Pulmonary opacities may represent mild interstitial edema in the appropriate cl inical context.
[2023-07-09 19:51] VITALS: BP 132/96; PULSE 56; RESP 15; TEMP 36.9; O2SAT 97
--- NOTE | 2023-07-09 21:03 | ED.GENADULT ---
HPI - General Adult General Chief complaint: Fall Stated complaint: fall Time Seen by Provider: 07/09/23 20:35 Source: patient and family Mode of arrival: EMS Limitations: dementia History of Present Illness HPI narrative: This is a 70-year-old male with PMH of Parkinson's, dementia, HLD who presents to the ED with chief complaint of a fall out of her recliner this evening. He is arriving via EMS from home, lives with his . Daughter is here and supplementing history. She states that told her that he was lying face forward on the floor in front of his chair after she heard a scream. Daughter says that he has had some trouble with using the chairlift functions and likely slid forward out of the chair. reported that he was on his left side the patient is complaining of right knee pain now. Patient is normally A & O x1 and largely nonverbal. She states that he has had a cough lately but is a smoker and this is not out of the ordinary. States that he does not normally walk on his own. Denies any other recent illness, urinary complaints or new deficit complaints. Patient denies any further sites of pain or injury. Related Data Home Medications Medication Instructions Recorded Confirmed amlodipine 2.5 mg tablet 2.5 mg PO DAILY 06/22/22 06/22/22 ammonium lactate 12 % lotion 1 applic topical DAILY PRN Dry Skin 06/22/22 06/22/22 aspirin 81 mg chewable tablet 81 mg PO DAILY 06/22/22 06/22/22 carbamide peroxide 6.5 % ear drops 5 drp EACH EAR DAILY 06/22/22 06/22/22 carbidopa 25 mg-levodopa 100 mg 2 tablet PO TID 06/22/22 06/22/22 tablet clotrimazole 1 % topical cream 1 applic topical BID 06/22/22 06/22/22 folic acid 1 mg tablet 1 mg PO DAILY 06/22/22 06/22/22 ipratropium 20 mcg-albuterol 100 1 puff inhalation QID PRN SOB 06/22/22 06/22/22 mcg/actuation mist for inhalation ketotifen fumarate 0.025 % (0.035 1 drp BID PRN Allergy Symptoms 06/22/22 06/22/22 %) eye drops (Allergy Eye (ketotifen)) melatonin 3 mg capsule 9 mg PO HS PRN Insomnia 06/22/22 06/22/22 mupirocin 2 % topical ointment 1 applic topical BID 06/22/22 06/22/22 omeprazole 20 mg capsule,delayed 20 mg PO DAILY 06/22/22 06/22/22 release rosuvastatin 10 mg tablet 5 mg PO DAILY 06/22/22 06/22/22 sertraline 100 mg tablet 200 mg PO DAILY 06/22/22 06/22/22 valacyclovir 1 gram tablet 1,000 mg TID 06/22/22 06/22/22 Allergies Allergy/AdvReac Type Severity Reaction Status Date / Time No Known Allergies Allergy Verified 07/09/23 20:02 Review of Systems Review of Systems: All systems as dictated in [facility] Past Medical History Medical History (Updated 07/09/23 @ 22:38 by Jermaine Rivera PA-C) Depression HTN (hypertension), malignant Hyperlipidemia Parkinsons disease Surgical History Surgical History H/O laminectomy 2011 Family History Family History Father Carcinoma of colon Sibling Cancer Social History Social History (Updated 06/22/22 @ 23:26 by Britney Larson NP) Social History: The patient lives with his who is the power ip attorney. Thus patient still SMOKEs approximately 1/2 pack a cigarettes per day. 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 He has 3 children. He denies any alcohol marijuana or illicit drugs. Code status full code Smoking packs per day: 0.5 Smoking cigarettes per day: 10.0 Years smoked: 60 Smoking pack-years: 30.00 Smoking status: Current every day smoker Tobacco type: cigarettes Alcohol intake: never Substance use: never Lack of Transportation: No Lack of Food: Never True Current Housing: I Have Housing Concerned About Future Housing: No Difficulty Paying Gas/Electric Bills: No Difficulty Paying for Meds: No Currently Unemployed: No Education: High School Diploma/GED Difficulty w/ Childcare or Family Care: No Spiritual care concerns: No
[2023-07-09] MEDS: ACETAMINOPHEN 500 MG TABLET 1000 MG PO (21:23)
[2023-07-09 21:36] LABS: Basophils Percent Auto 0.5 % (0.2-1.2); Eosinophils Absolute Auto 0.1 K/mm3 (0-0.3); Eosinophils Percent Auto 1.3 % (0-4.4); Hematocrit 46.9 % (42.0-52.0); Hemoglobin 15.3 g/dL (14.0-18.0); Immature Granulocyte Absolute 0.03 K/mm3 (0.00-0.031); Immature Granulocyte Percent A 0.4 % (0-0.5); Lymphocytes Absolute Auto 1.44 K/mm3 (0.9-3.2); Lymphocytes Percent Auto 17.5 % (18.3-44.2); Mean Corpuscular HGB Conc 32.6 g/dl (32-36); Mean Corpuscular Hemoglobin 30.8 pg (26-34); Mean Corpuscular Volume 94.4 fl (80-100); Mean Platelet Volume 11.5 fl (7.4-10.4); Monocytes Absolute Auto 0.5 K/mm3 (0.1-0.6); Monocytes Percent Auto 5.9 % (2.6-8.5); Neutrophils Absolute Auto 6.1 K/mm3 (1.3-6.7); Neutrophils Percent Auto 74.4 % (45.5-73.1); Platelet Count Result 146 k/mm3 (150-375); Red Blood Count 4.97 M/mm3 (4.6-6.20); Red Cell Distribution Width 14.6 % (11.5-14.5); White Blood Count 8.2 K/mm3 (4.5-10.0)
[2023-07-09 21:48] LABS: Alanine Aminotransferase 15 U/L (6-50); Albumin Level 4.2 g/dL (3.5-5.1); Alkaline Phosphatase 57 U/L (38-126); Anion Gap 11 mmol/L (8-16); Aspartate Amino Transferase 34 U/L (17-59); Bilirubin,Total 0.6 mg/dL (0.2-1.3); Blood Urea Nitrogen 15 mg/dL (9-20); CRP < 0.5 mg/dL (<1.0); Calcium 9.1 mg/dL (8.4-10.2); Carbon Dioxide 26 mmol/L (22-30); Chloride 102 mmol/L (98-107); Estimated CRCL calculation 92 ml/min; Estimated Glomerular Filt Rate > 60; Glucose 117 mg/dL (65-110); Potassium 3.9 mmol/L (3.4-5.0); Sodium 139 mmol/L (137-145)
[2023-07-09 22:52] VITALS: BP 116/82; PULSE 62; RESP 15; O2SAT 98
== END 2023-07-10 00:11 | disposition home or self-care (01) ==
PROVIDERS: Emergency Provider Physician Assistant
DX: S89.91XA Unspecified injury of right lower leg, initial encounter (principal); G20.A1 Parkinson's disease without dyskinesia, without mention of fluctuations; F03.90 Unspecified dementia, unspecified severity, without behavioral disturbance, psychotic disturbance, mood disturbance, and anxiety; E78.5 Hyperlipidemia, unspecified; F32.A Depression, unspecified; F17.210 Nicotine dependence, cigarettes, uncomplicated; Z79.82 Long term (current) use of aspirin; W07.XXXA Fall from chair, initial encounter
CPT/HCPCS: 36415; 71045; 73562; 80053; 85025; 86140; 99284; A9270

== ENCOUNTER 2024-09-29 23:46 | Emergency (ER) | payer MEDICARE, OTHER, SELFPAY ==
--- NOTE | ~2024-09-29 | US_ITS ---
EXAMINATION: US venous doppler LE RT DATE: 09/30/2024 07:56 INDICATION: Leg pain. TECHNIQUE: Grayscale ultrasound images without and with compression and Doppler ultrasound images of the right lower extremity veins were obtained. COMPARISON: None. FINDINGS: The visualized portions of right common femoral vein, profunda (deep) femoral vein, femoral vein, pop liteal vein, peroneal trunk, posterior tibial veins, peroneal veins and greater saphenous vein outflo w are patent. IMPRESSION: 1. No deep venous thrombosis in the right lower limb. Reviewed, dictated and finalized at location A. NE USER EXPERIENCE STRATEGIST
--- NOTE | ~2024-09-29 | XR_ITS ---
EXAMINATION: XR knee RT 3V DATE: 09/30/2024 01:01 INDICATION: Right knee pain TECHNIQUE: Anteroposterior, oblique and crosstable lateral views of the right knee were obtained COMPARISON: 07/09/2023 FINDINGS: Prominent diffuse osteopenia. Alignment is normal. No fracture. Chondrocalcinosis and mild joint spa ce narrowing at the lateral compartment, the latter which could be underestimated on nonweightbearing imaging. Scattered atherosclerotic calcifications. Soft tissues are otherwise unremarkable with no f ocal soft tissue swelling. No joint effusion. IMPRESSION: 1. No joint effusion or acute osseous abnormality. 2. 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 Reviewed, dictated and finalized at location A. TAX IMPRESSION: 1. No joint effusion or acute osseous abnormality. 2. Chondrocalcinosis and at least mild osteoarthritis in the lateral compartmen t of the right knee.
[2024-09-29 23:45] VITALS: BP 136/76; PULSE 60; RESP 17; TEMP 36.9; O2SAT 97
--- OUTSIDE RECORDS SUMMARY | 2024-09-30 00:35 | XMS_ITS | Continuity of Care Document ---
Author Organization [facility] Address [address] [place] [address] Phone Care Team Providers Care Puppy Sitter Name Role Phone Administrative, Provider Unavailable Unavail able Procedures Procedure Date Global/Postop followup visit Laminectomy Lumbar 1 segmt Each Addtl Segmt Laminectomy Order For Parenteral Antibx Antibx Were Given W/in 4 Hours Prior To Surg Discontinue Antibx Within 24 Hours Of Banegas rg VTE Prophylaxis Order Given 24 Hours Clotilde or Surg Laminectomy Lumbar 1 segmt Each Addtl Segmt Laminectomy Order For Parenteral Antibx Antibx Were Given W/in 4 Hours Prior To Surg Discontinue Antibx Within 24 Hours Of Banegas rg VTE Prophylaxis Order Given 24 Hours Clotilde or Surg X-ray exam hip, minimum 2 views 012 Office/outpatient visit,est, mod 2011 Lumbar Sacral Orthotic Office/outpatient visit,est, mod 2011 Office/outpatient visit,new, mod 2011 Advance Directives Directive Yes / No Effective Date File Name No Information Encounters Encounter Description Practice Location Reason(s) For Visit Diagnoses Date Provider Providers Copied on Encounter [facility], [address], [id number], [place] tel:[phone] [facility] No Information Administrati ve Provider. [address] [address], [place], [place], [id number], [place]. tel:[phone] [facility], [address] [place] [address], [place], [place], [id number], tel:[phone] [facility] Spinal Stenosis Lumbar WO Neurogenic ClaudicationPO STLAMINECT SYND-LUMBARRad iculitis, Thoracic or Lumbar 3 Tammy Ferguson. [address] [place] [address], [place], [place], [id number], [place]. tel:[phone] Referring Provider: Jermaine Stewart, [address] [place] [address], [id number] . tel:[phone] [facility], [address] [place] [address], [id number], tel:[phone] [facility] No Information 2 Fam Turner. [address] [place] [address], [place], [place], [id number], [place]. tel:[phone] Referring Provider: Jermaine Stewart, [address] [place] [address], [id number] . tel:[phone] [facility], [address] [place] [address], [id number], [place] tel:[phone] [facility] No Information 2 Tammy Ferguson. [address] [place] [address], [id number], [place]. tel:[phone] Referring Provider: Jermaine Stewart, [address] [place] [address], [id number] . tel:[phone] Office/outpa tient visit,est, mod [facility], [address] [place] [address], [id number], [place] tel:[phone] [facility] Spinal Stenosis Lumbar WO Neurogenic ClaudicationLU MBAGOJOINT PAIN-PELVIS 2 Tammy Ferguson. [address] [facility], [address] [place] [address], [place], [place], [id number], [place]. tel:[phone] Referring Provider: Jermaine Stewart, [address] [place] [address], [id number] . tel:[phone] Office[facility]outpa [facility]ient visit,[facility], [address], [id number], tel:[phone] [facility] LUMBAGOLUMB/DURAN MBOSAC DISC DEGEN 2 Tammy Ferguson. [address] [facility], [place] [address], [place], [place], [id number], [place]. tel:[phone] Referring Provider: Jermaine Stewart, [address] [place] [address], [id number] . tel:[phone] Office/outpa tient visit,[facility], [address], [id number], [place] tel:[phone] [facility] SPRAIN LUMBOSACRALRad iculitis, Thoracic or LumbarSpinal Stenosis Lumbar WO Neurogenic ClaudicationLU MBAGO 2 Fam Turner. [address] [facility], [place] [address], [place], [place], [id number], [place]. tel:[phone] Referring Provider: Jermaine Stewart, [address] [place] [address], [id number] . tel:[phone] Family History Family Member Type Diagnosis Age At Onset No Information Payers Payer name Insurance type Covered libertarian ID Authoriza tion(s) No Information Social History Type Description Quantity Date Captured Comments Sex Male Smoking Status No Information Chief Complaint And Reason For Visit No Information Reason For Referral Reason For Referral No Information Plan Of Treatment Date Type Action Status Goal Tobacco cessation counseling completed Goal Tobacco cessation counseling completed History Of Present Illness Encounter Date Complaint History Of Prese nt Illness No Information Functional Status Date Functional Assessmen t No Information Instructions Date Instruction Additional Infor mation No Information Assessments Type Assessment Date No Information Patient Care Teams Name Effective Dates (start - stop) Status Members No Information
--- NOTE | 2024-09-30 00:40 | ED.EXTPRO ---
HPI - Extremity Problem General Chief complaint: Extremity Problem,Nontraumatic Stated complaint: R knee pain Time Seen by Provider: 09/30/24 00:28 Source: patient and family (Daughter No) Mode of arrival: EMS Limitations: dementia (Parkinson) History of Present Illness HPI Narrative: Patient presents with concern for acute onset right knee pain. He has a history of parkinsonism and is nonverbal at baseline although daughter states he had been pointing to the left lateral aspect of his knee. He is bed-bound and has not walked for the last 5 or 6 years. They use a lift assist at home. No history of injury or falls. Daughter thinks that he may be having muscle spasms the area of his IT band. He was recently prescribed gabapentin and took this tonight but at 1st seemed to be having acute worsening of pain, then with improvement, and now seems to be in pain again. Lives at home with his . Not on anticoagulation. Related Data Home Medications ?Medication ?Instructions ?Recorded ?Confirmed ?Last Taken ?Type amlodipine 2.5 mg tablet 2.5 mg PO DAILY 06/22/22 06/22/22 Unknown History ammonium lactate 12 % lotion 1 applic topical DAILY PRN Dry Skin 06/22/22 06/22/22 Unknown History aspirin 81 mg chewable tablet 81 mg PO DAILY 06/22/22 06/22/22 Unknown History carbamide peroxide 6.5 % ear drops 5 drp EACH EAR DAILY 06/22/22 06/22/22 Unknown History carbidopa 25 mg-levodopa 100 mg 2 tablet PO TID 06/22/22 06/22/22 Unknown History tablet clotrimazole 1 % topical cream 1 applic topical BID 06/22/22 06/22/22 Unknown History folic acid 1 mg tablet 1 mg PO DAILY 06/22/22 06/22/22 Unknown History ipratropium 20 mcg-albuterol 100 1 puff inhalation QID PRN SOB 06/22/22 06/22/22 Unknown History mcg/actuation mist for inhalation ketotifen fumarate 0.025 % (0.035 1 drp BID PRN Allergy Symptoms 06/22/22 06/22/22 Unknown History %) eye drops (Allergy Eye (ketotifen)) melatonin 3 mg capsule 9 mg PO HS PRN Insomnia 06/22/22 06/22/22 Unknown History mupirocin 2 % topical ointment 1 applic topical BID 06/22/22 06/22/22 Unknown History omeprazole 20 mg capsule,delayed 20 mg PO DAILY 06/22/22 06/22/22 Unknown History release rosuvastatin 10 mg tablet 5 mg PO DAILY 06/22/22 06/22/22 Unknown History sertraline 100 mg tablet 200 mg PO DAILY 06/22/22 06/22/22 Unknown History valacyclovir 1 gram tablet 1,000 mg TID 06/22/22 06/22/22 Unknown History Allergies Allergy/AdvReac Type Severity Reaction Status Date / Time No Known Allergies Allergy Verified 09/29/24 23:50 PMF Past Medical History Medical History HTN (hypertension), malignant Hyperlipidemia Depression Parkinsons disease Surgical History Surgical History H/O laminectomy 2011 Family History Family History Father Carcinoma of colon Sibling Cancer Social History Social History 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 He has 3 children. Code status full code Smoking packs per day: 0.5 Smoking cigarettes per day: 10.0 Years smoked: 60 Smoking pack-years: 30.00 Smoking status: Current every day smoker Tobacco type: cigarettes Alcohol intake: never Substance use: never Other substance usage details: denies marijuana or illicit drugs Lack of Transportation: No Lack of Food: Never True Current Housing: I Have Housing Concerned About Future Housing: No Difficulty Paying Gas/Electric Bills: No Difficulty Paying for Meds: No Currently Unemployed: No Education: High School Diploma/GED Difficulty w/ Childcare or Family Care: No Living arrangements: with family Additional living arrangements comments: lives with his Occupation/Education: retired 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 EYES: Non injected, non icteric ENT: Nares clear, no rhinorrhea or epistaxis. Dry mucous membranes. NECK: Supple. CHEST: Speaking in full sentences. No respiratory distress. HEART: Regular rate and rhythm. ABDOMEN: Soft, nondistended. EXTREMITIES: Rigidity in bilateral lower extremities, particularly RLE which he keeps flexed. No lower extremity edema. No tenderness to palpation of lateral or medial knee joint. No tenderness to palpation thigh or calf on the right for which compartments are soft. No joint effusion. PELVIS: Stable to compression. SKIN: Warm, dry, no rash. No overlying erythema or ecchymosis. Pale. NEURO: No focal deficits. Alert but not oriented, non verbal. PSYCH: Normal mood and affect. Course Vital Signs Vital signs: Vital Signs Temperature 98.4 F 09/29/24 23:45 Pulse Rate 60 09/29/24 23:45 Respiratory Rate 17 09/29/24 23:45 Blood Pressure 136/76 09/29/24 23:45 Pulse Oximetry 97 09/29/24 23:45 Oxygen Delivery Room Air 09/29/24 23:45 Temperature 98.4 F 09/29/24 23:45 Pulse Rate 57 L 09/30/24 08:12 Respiratory Rate 16 09/30/24 08:12 Blood Pressure 136/74 09/30/24 08:12 Pulse Oximetry 94 09/30/24 08:12 Oxygen Delivery Room Air 09/29/24 23:45 MDM - Extremity (Nontraumatic) MDM Narrative Medical decision making narrative: Patient with a history of Parkonsinosm who is bed-bound and essentially nonverbal at baseline presents concern for right knee pain as he was pointing to the lateral aspect of this extremity. In the emergency department they are afebrile with vital signs within normal limits. Thrombocytopenia. Previously seen although slightly worsened. Patient does have an elevated dimer. Next steps would be to proceed with ultrasound imaging however unavailable overnight. Typically would give a dose of anticoagulation and discharge home and place him on the schedule for outpatient study at 7 or 730. However, given it is 2:30 a.m. and he is bedbound, it makes more sense to stay in the ED and get the study when US arrives later this morning rather than arranging EMS home and then trying to arrange transportation back. Daughter updated and she concurs. His pain is otherwise well controlled at this point. He does require another dose of pain medication while waiting. No DVT. Stable for discharge but will require EMS transportation given bedbound status. Differential Diagnosis Differential diagnosis: Likely deep vein thrombosis of lower extremity and other (Fracture/dislocation, muscle spasms, pain secondary to parkinsonism, symptomatic anemia, electrolyte abnormalities) Lab Data Attestation: I reviewed the patient's lab results. 09/30/24 01:12 09/30/24 01:12 Labs: Lab Results 09/30/24 Range/Units 01:12 WBC 6.8 (4.5-10.0) K/mm3 RBC 4.65 (4.6-6.20) M/mm3 Hgb 14.9 (14.0-18.0) g/dL Hct 44.0 (42.0-52.0) % MCV 94.6 (80-100) fl MCH 32.0 (26-34) pg MCHC 33.9 (32-36) g/dl RDW 14.3 (11.5-14.5) % Plt Count 111 L (150-375) k/mm3 MPV 11.9 H (7.4-10.4) fl Immature Gran % (Auto) 0.3 (0-0.5) % Neut % (Auto) 76.7 H (45.5-73.1) % Lymph % (Auto) 16.1 L (18.3-44.2) % [place] % (Auto) 5.0 (2.6-8.5) % Eos % (Auto) 1.5 (0-4.4) % Baso % (Auto) 0.4 (0.2-1.2) % Lymph # (Auto) 1.10 (0.9-3.2) K/mm3 [place] # (Auto) 0.3 (0.1-0.6) K/mm3 Eos # (Auto) 0.1 (0-0.3) K/mm3 Baso # (Auto) 0.0 (0.0-0.1) K/mm3 Abs Immat Gran (auto) 0.02 (0.00-0.031) K/mm3 Absolute Neuts (auto) 5.2 (1.3-6.7) K/mm3 Absolute Nucleated RBC 0.000 (0.0-0.012) K/mm3 Nucleated RBC % 0.0 (0.0-0.2) % PT 13.2 (11.1-14.7) Seconds INR 1.0 APTT 32.7 (22.3-36.8) Seconds D-Dimer 2.29 H (<0.48) ug/mL Sodium 138 (137-145) mmol/L Potassium 4.2 (3.4-5.0) mmol/L Chloride 104 (98-107) mmol/L Carbon Dioxide 25 (22-30) mmol/L Anion Gap 9 (4-12) mmol/L BUN 19 (9-20) mg/dL Creatinine 0.55 L (0.7-1.3) mg/dL Estim Creat Clear Calc 92 ml/min Estimated GFR > 60 (59 - ) Glucose 121 H (65-110) mg/dL Calcium 9.0 (8.4-10.2) mg/dL Magnesium 1.7 (1.6-2.3) mg/dL Total Bilirubin 0.7 (0.2-1.3) mg/dL AST 32 (17-59) U/L ALT 13 (6-50) U/L Alkaline Phosphatase 52 (38-126) U/L Total Creatine Kinase 42 L (55-170) U/L Total Protein 7.0 (6.3-8.2) g/dL Albumin 4.0 (3.5-5.1) g/dL Imaging Data Attestation: I personally reviewed and interpreted this imaging study as follows: My impression: No acute fracture or dislocation on my independent interpretation of the x-ray Radiologist's impression: Impressions Venous Doppler Study 09/30/24 07:59 IMPRESSION: 1. No deep venous thrombosis in the right lower limb. Knee X-Ray 09/30/24 09:10 IMPRESSION: 1. No joint effusion or acute osseous abnormality. 2. 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 Discharge Plan Discharge Clinical Impression: Acute pain of right knee, Thrombocytopenia Patient Disposition: Home, Self-Care Condition: Stable Instructions: Antibiotic Form, Knee Pain (ED), Thrombocytopenia (ED) Additional Instructions: As we discussed, no electrolyte abnormalities, evidence of increased muscle breakdown to a degree that would explain this symptom, fracture/dislocation, or blood clot. Continue taking medications as prescribed. Acetaminophen/Tylenol (maximum 4000 mg per day) is safe to take with NSAIDs (ibuprofen/Motrin) for pain relief. Follow-up with your primary care physician. Return to the emergency department with any new or worsening symptoms. Patient Language: Maltese Prescriptions: New ibuprofen 600 mg tablet 600 mg PO TID PRN (Reason: pain) Qty: 30 0RF acetaminophen 500 mg capsule 1,000 mg PO Q6H PRN (Reason: pain) Qty: 30 0RF No Action ammonium lactate 12 % Lotion 1 applic TOPICAL DAILY PRN (Reason: Dry Skin) amlodipine 2.5 mg Tablet 2.5 mg PO DAILY carbamide peroxide 6.5 % Drops 5 drp EACH EAR DAILY aspirin 81 mg Tablet,Chewable 81 mg PO DAILY folic acid 1 mg Tablet 1 mg PO DAILY clotrimazole 1 % Cream 1 applic TOPICAL BID Rx Instructions: apply to mouth for active breakouts sertraline 100 mg Tablet 200 mg PO DAILY omeprazole 20 mg Capsule,Delayed Release(Dr/Ec) 20 mg PO DAILY mupirocin 2 % Ointment 1 applic TOPICAL BID Rx Instructions: apply to buttocks for maceration carbidopa-levodopa 25-100 mg Tablet 2 tablet PO TID ipratropium-albuterol 20-100 mcg/actuation Mist 1 puff INHALATION QID PRN (Reason: SOB) melatonin 3 mg Capsule 9 mg PO HS PRN (Reason: Insomnia) ketotifen fumarate [Allergy Eye (ketotifen)] 0.025 % (0.035 %) Drops 1 drp BID PRN (Reason: Allergy Symptoms) valacyclovir 1 gram Tablet 1,000 mg TID rosuvastatin 10 mg Tablet 5 mg PO DAILY levofloxacin 750 mg tablet 750 mg PO DAILY Qty: 7 0RF albuterol sulfate [Ventolin HFA] 90 mcg/actuation HFA aerosol inhaler 2 puff inhalation QID PRN (Reason: shortness of breath or wheezing) Qty: 8.5 0RF Follow-up/Referrals: [facility] [Primary Care Provider] - Time of Disposition: 08:14
[2024-09-30] MEDS: HYDROmorphone HCL INJ (*CRX) 1 MG/ML SYR 0.5 MG IM (01:01)
[2024-09-30 01:24] LABS: Basophils Percent Auto 0.4 % (0.2-1.2); Eosinophils Absolute Auto 0.1 K/mm3 (0-0.3); Eosinophils Percent Auto 1.5 % (0-4.4); Hemoglobin 14.9 g/dL (14.0-18.0); Immature Granulocyte Absolute 0.02 K/mm3 (0.00-0.031); Immature Granulocyte Percent A 0.3 % (0-0.5); Lymphocytes Percent Auto 16.1 % (18.3-44.2); Mean Corpuscular HGB Conc 33.9 g/dl (32-36); Mean Corpuscular Volume 94.6 fl (80-100); Mean Platelet Volume 11.9 fl (7.4-10.4); Monocytes Absolute Auto 0.3 K/mm3 (0.1-0.6); Neutrophils Absolute Auto 5.2 K/mm3 (1.3-6.7); Neutrophils Percent Auto 76.7 % (45.5-73.1); Platelet Count Result 111 k/mm3 (150-375); Red Blood Count 4.65 M/mm3 (4.6-6.20); Red Cell Distribution Width 14.3 % (11.5-14.5); White Blood Count 6.8 K/mm3 (4.5-10.0)
[2024-09-30 01:26] VITALS: BP 132/95; PULSE 55; RESP 17; O2SAT 95
[2024-09-30 02:01] VITALS: BP 111/74; PULSE 56; RESP 16; O2SAT 96
[2024-09-30 02:01] LABS: Alanine Aminotransferase 13 U/L (6-50); Alkaline Phosphatase 52 U/L (38-126); Anion Gap 9 mmol/L (4-12); Aspartate Amino Transferase 32 U/L (17-59); Bilirubin,Total 0.7 mg/dL (0.2-1.3); Blood Urea Nitrogen 19 mg/dL (9-20); Carbon Dioxide 25 mmol/L (22-30); Chloride 104 mmol/L (98-107); Estimated CRCL calculation 92 ml/min; Estimated Glomerular Filt Rate > 60; Glucose 121 mg/dL (65-110); Magnesium 1.7 mg/dL (1.6-2.3); Potassium 4.2 mmol/L (3.4-5.0); Sodium 138 mmol/L (137-145)
[2024-09-30 02:12] LABS: Prothrombin Time 13.2 Seconds (11.1-14.7)
[2024-09-30 02:14] LABS: Partial Thromboplastin Time 32.7 Seconds (22.3-36.8)
[2024-09-30 02:19] LABS: D Dimer 2.29 ug/mL (<0.48)
[2024-09-30 02:44] LABS: Creatine Kinase 42 U/L (55-170)
[2024-09-30 03:01] VITALS: BP 98/62; PULSE 52; RESP 12
[2024-09-30] MEDS: MORPHINE SULFATE (*CRX) 4 MG/ML INJ IV PUSH (03:54)
[2024-09-30] MEDS: ONDANSETRON INJ 4 MG/2 ML VIAL IV PUSH (03:54)
[2024-09-30 04:01] VITALS: BP 95/64; PULSE 55; RESP 13; O2SAT 95
[2024-09-30 06:02] VITALS: BP 101/69; PULSE 53; RESP 12; O2SAT 98
[2024-09-30] MEDS: MORPHINE SULFATE (*CRX) 2 MG/ML INJ IV PUSH (08:08)
[2024-09-30 08:12] VITALS: BP 136/74; PULSE 57; RESP 16; O2SAT 94
== END 2024-09-30 11:25 | disposition home or self-care (01) ==
PROVIDERS: Emergency Provider Student in an Organized Health Care Education/Training Program
DX: M25.561 Pain in right knee (principal); D69.6 Thrombocytopenia, unspecified; M79.604 Pain in right leg; G20.C Parkinsonism, unspecified; I10 Essential (primary) hypertension; E78.5 Hyperlipidemia, unspecified; F32.A Depression, unspecified; F17.210 Nicotine dependence, cigarettes, uncomplicated; Z74.01 Bed confinement status; Z79.82 Long term (current) use of aspirin; Z79.899 Other long term (current) drug therapy; M17.11 Unilateral primary osteoarthritis, right knee; M11.261 Other chondrocalcinosis, right knee
CPT/HCPCS: 36415; 73562; 80053; 82550; 83735; 85025; 85380; 85610; 85730; 93971; 96372; 96374; 96375; 96376; 99284; J1171; J2270; J2405